=== PATIENT | female | born 1975 | race Caucasian/White ===

== ENCOUNTER → 2017-04-22 | Outpatient (CLI) | payer OTHER ==
[~2017-04-22] MED LIST: NO MEDICATIONS
--- NOTE | ~2017-04-22 | MR60 ---
[facility] A Service of [facility] RADIOLOGY TEXT RESULTS PATIENT: SHAILESH LUCIANO LOCATION: [facility] : 77 UNIT #: [id number] AGE: [address]: Mae Ribera MD SEX: F ORDER DR: [id number] [facility] [address] [place], [place] [address] [id number] MR#: [id number] Acc #: [id number] NAME: SHAILESH LUCIANO : 1975 SEX: F STUDY DATE/TIME: 04/22/2017 14:06 UNIT: [facility] ROOM: STUDY DESCRIPTION: MR Foot Wo Contrast Lt Attending Physician: Cristal Ribera M.D. Referring Physician: Cristal Ribera M.D. Ordering Physician: Cristal Ribera M.D. Primary Care Physician: Paty Salcedo M.D. MRI CENTER REPORT This report is preliminary unless electronic signature is present. EXAM MRI left forefoot without contrast 04/22/2017. HISTORY Order states left forefoot without contrast. Left hallux sesamoid fracture. History sheet [place]. Pain first toe plantar surface. X-rays show fractures sesamoid. COMPARISON [address] [facility] office note 04/16/2017. Comparison-left foot radiographs 03/25/2017 and 04/12/2017. There is no evidence of a definite recent tibial or fibular sesamoid fracture of the first MTP complex. The medial tibial sesamoid demonstrates a sequela of old proximal fracture or bipartite morphology with a somewhat sclerotic appearing appearance. Findings could reflect sequela of old fracture, bipartite developmental variation, or even chronic avascular necrosis.. The lateral this (fibular) sesamoid demonstrates a bipartite or chronic transverse fracture-appearance also with sclerosis of both h segments. Differential in site of as of this pain. There is very minimal central marrow edema in both sesamoids which could be secondary to superimposed bone contusion or stress reaction best seen on sagittal series 16. There is also mild underlying edema in the subcutaneous fat space eccentric to the medial side. Just deep to the soft tissue edema is linear abnormal intermediate signal coursing between the medial aspect of the tibial sesamoid and the adjacent abductor hallucis tendon at its sesamoid attachment compatible with subacute-appearing focal disruption of the medial capsule and abductor hallucis attachment to the medial sesamoid. [facility] A Service of [facility] RADIOLOGY TEXT RESULTS PATIENT: SHAILESH LUCIANO [facility] UNIT #: [id number] AGE: [address]: Mae Ribera MD SEX: F ORDER DR: The plantar plate complex is otherwise within normal limits. The first MTP joint shows no effusion, chondral/osteochondral lesion, or other abnormality. Extensor hallucis and flexor hallucis tendons are intact.. IMPRESSION 1. The medial and lateral sesamoids at the first MTP complex demonstrate a bipartite appearance (chronic fracture is considered less likely). There is no evidence of recent sesamoid fracture. Very minimal edema within both sesamoids as well as a sclerotic change is probably related to stress reaction and/or less likely, osteonecrosis. 2. There is soft tissue edema in the plantar medial forefoot just superficial to the medial sesamoid and plantar plate complex. A linear signal focus/defect just medial to the tibial sesamoid is compatible with a subacute-appearing focal disruption of the medial capsule and abductor hallucis attachment to the medial sesamoid. Plantar plate complex is otherwise normal. 3. The remainder of the forefoot is normal. Dictated by... Ramya Harrison M.D. THIS IS AN ELECTRONICALLY VERIFIED REPORT Ramya Harrison M.D. at 04/23/2017 1:47 PM LISA/teo TD: 04/23/2017 12:33 JOB #: [id number] MRI CENTER REPORT Page 1 of 1 COPY
== END | disposition home or self-care (01) ==
LOC: CMRI 13:37
DX: S92.402A Displaced unspecified fracture of left great toe, initial encounter for closed fracture (principal); R60.0 Localized edema
CPT/HCPCS: 73718